=== PATIENT | male | born 1960 | race Two or more races ===

== ENCOUNTER 2019-12-30 18:54 | Emergency (ER) | payer OTHER ==
[~2019-12-30] VITALS: Ht 177.8 cm; Wt 84.8 kg
[2019-12-30] MEDS ORDERED: HYDROcodone/APAP 5/325MG 1 TAB TABLET PO ONE (20:00)
[2019-12-30] MEDS ORDERED: HYDR-3164 PO (20:27)
--- NOTE | 2019-12-30 20:28 | PHYS DOC ---
Past Medical History Past Medical History: No Pertinent History Smoking Status: Never Smoker Alcohol Use: Occasionally General Adult EDM: Chief Complaint: CLAVICLE INJURY HPI: HPI: Patient is a 59 year old [f__sex] who presents with [] Review of Systems: Review of Systems: Constitutional: Denies fever or chills. [] Eyes: Denies change in visual acuity. [] HENT: Denies nasal congestion or sore throat. [] Respiratory: Denies cough or shortness of breath. [] Cardiovascular: Denies chest pain or edema. [] GI: Denies abdominal pain, nausea, vomiting, bloody stools or diarrhea. [] : Denies dysuria. [] Musculoskeletal: Denies back pain or joint pain. [] Integument: Denies rash. [] Neurologic: Denies headache, focal weakness or sensory changes. [] Endocrine: Denies polyuria or polydipsia. [] Lymphatic: Denies swollen glands. [] Psychiatric: Denies depression or anxiety. [] Heart Score: Risk Factors: Risk Factors: DM, Current or recent (<one month) smoker, HTN, HLP, family history of CAD, obesity. Risk Scores: Score 0 - 3: 2.5% MACE over next 6 weeks - Discharge Home Score 4 - 6: 20.3% MACE over next 6 weeks - Admit for Clinical Observation Score 7 - 10: 72.7% MACE over next 6 weeks - Early Invasive Strategies Current Medications: Current Medications Medications (Trade) Dose Ordered Sig/Pooja Start Time Stop Time Status Last Admin Dose Admin Acetaminophen/ Hydrocodone Bitart (Lortab 5/325) 1 tab 1X ONCE 12/30/19 20:00 12/30/19 20:01 DC 12/30/19 20:24 1 TAB Allergies: Allergies: Allergies Coded Allergies Type Severity Reaction Last Updated Verified No Known Drug Allergies 12/30/19 No Physical Exam: PE: Constitutional: Well developed, well nourished, no acute distress, non-toxic appearance. [] HENT: Normocephalic, atraumatic, bilateral external ears normal, oropharynx m oist, no oral exudates, nose normal. [] Eyes: PERRLA, EOMI, conjunctiva normal, no discharge. [] Neck: Normal range of motion, no tenderness, supple, no stridor. [] Cardiovascular:Heart rate regular rhythm, no murmur [] Lungs & Thorax: Bilateral breath sounds clear to auscultation [] Abdomen: Bowel sounds normal, soft, no tenderness, no masses, no pulsatile masses. [] Skin: Warm, dry, no erythema, no rash. [] Back: No tenderness, no CVA tenderness. [] Extremities: No tenderness, no cyanosis, no clubbing, ROM intact, no edema. [] Neurologic: Alert and oriented X 3, normal motor function, normal sensory function, no focal deficits noted. [] Psychologic: Affect normal, judgement normal, mood normal. [] Current Patient Data: Vital Signs: Vital Signs Date Time Temp Pulse Resp B/P (MAP) Pulse Ox O2 Delivery O2 Flow Rate FiO2 12/30/19 20:24 20 96 Room Air 12/30/19 19:15 97.8 153/80 (104) 97.8 EKG: EKG: [] Radiology/Procedures: Radiology/Procedures: [] Course & Med Decision Making: Course & Med Decision Making Pertinent Labs and Imaging studies reviewed. (See chart for details) [] Dragon Disclaimer: Dragon Disclaimer: This electronic medical record was generated, in whole or in part, using a voice recognition dictation system. Departure Departure Impression: Primary Impression: Clavicle fracture Qualified Codes: S42.021A - Displaced fracture of shaft of right clavicle, initial encounter for closed fracture Disposition: HOME, SELF-CARE Condition: STABLE Referrals: JUDY JEFFERS MD Patient Instructions: Clavicle Fracture, [id number], Shoulder Immobilizer Additional Instructions: ICE area 20 min on and then leave off for next 20 min. Repeat as needed for next few days. May use over the counter Ibuprofen or Aleve between doses of pain medication. Scripts Hydrocodone/Apap 5-325 (NORCO 5-325 TABLET) 1 Each Tablet 0.5-1 TAB PO PRN Q6HRS PRN for PAIN, #14 TAB 0 Refills Prov: HENRY SARAVIA DO 12/30/19 Justicifation of Admission Dx: Justifications for Admission: Justification of Admission Dx: N/A HENRY SARAVIA DO Dec 30, 2019 20:28
--- NOTE | 2019-12-30 20:33 | RAD ---
CLAVICLE RIGHT DATE: 12/30/2019 7:41 PM INDICATION: Reason: pain/swelling, FOOSH / Spl. Instructions: / History: COMPARISON: None. FINDINGS/ IMPRESSION: Acute comminuted fracture of the mid third of the clavicle with greater than one shaft width inferior displacement of the distal clavicle. Electronically signed by: Dann Brandon MD (12/30/2019 8:30 PM) [id number]
[2019-12-30 20:50] VITALS: BP 146/76
== END 2019-12-30 21:15 | disposition home or self-care (01) ==
LOC: ER 18:54
DX: S42.021A Displaced fracture of shaft of right clavicle, initial encounter for closed fracture (principal); V29.88XA Motorcycle rider (driver) (passenger) injured in other specified transport accidents, initial encounter; Y92.488 Other paved roadways as the place of occurrence of the external cause; Y93.89 Activity, other specified; Y99.8 Other external cause status
CPT/HCPCS: 29105; 73000; 99283